=== PATIENT | male | born 1980 | race Caucasian/White ===

== ENCOUNTER 2017-07-11 15:07 | Inpatient (IN) | payer OTHER ==
[~2017-07-11] VITALS: Ht 185.4 cm; Wt 113.3 kg
[2017-07-11] MEDS ORDERED: IPRATROPIUM BROMIDE 0.5 MG/2.5 ML NEB SOLUTION NEB ONE ×2 (15:12→15:30)
[2017-07-11] MEDS ORDERED: ALBUTEROL SULFATE 5 MG/ML 20 ML NEB SOLN [BULK] NEB ONE ×2 (15:12→15:30)
[2017-07-11] MEDS ORDERED: FLUMAZENIL 0.1 MG/ML 5 ML VIAL IVP ONE (15:15)
[2017-07-11] MEDS ORDERED: SODIUM CHLORIDE 0.9% 1,000 ML IV ONE ×2 (15:15→16:30)
[2017-07-11] MEDS ORDERED: NALOXONE HCL 1 MG/ML 2 ML SYG IVP ONE (15:15)
[2017-07-11] MEDS ORDERED: AMLO-511 PO (15:29)
[2017-07-11] MEDS ORDERED: DULO30CA2 PO (15:29)
[2017-07-11] MEDS ORDERED: GABA-531 PO (15:29)
[2017-07-11] MEDS ORDERED: LOSA25TA21 PO (15:29)
[2017-07-11] MEDS ORDERED: ACAM333T7 PO (15:29)
[2017-07-11] MEDS ORDERED: TRAZ-147 PO (15:29)
[2017-07-11] MEDS ORDERED: SILD25 PO (15:29)
[2017-07-11] MEDS ORDERED: LIB25 PO (15:29)
[2017-07-11 15:50] LABS: BASOPHILS % (AUTO) 0.8 % (0.0-2.0); EOSINOPHILS % (AUTO) 3.5 % (1.0-6.0); HEMATOCRIT 47.6 % (41-53); HEMOGLOBIN 16.2 g/dL (13.5-17.5); LYMPHOCYTES # (AUTO) 3.7 K/uL (1.0-4.8); LYMPHOCYTES % (AUTO) 22.7 % (22.0-44.0); MEAN CORPUSCULAR HEMOGLOBIN 30.3 pg (26.0-34.0); MEAN CORPUSCULAR HGB CONC 33.9 G/dL (31.0-37.0); MEAN CORPUSCULAR VOLUME 89 fL (80-100); MONOCYTES % (AUTO) 11.9 % (2.0-9.0); NEUTROPHILS # (AUTO) 10.1 K/uL (1.8-7.7); NEUTROPHILS % (AUTO) 61.1 % (40.0-70.0); PLATELET COUNT (AUTO) 279 K/uL (150-450); RED BLOOD CELL COUNT(AUTO) 5.33 MIL/uL (4.50-5.90); RED CELL DISTRIBUTION WIDTH 13.6 % (11.5-14.5)
[2017-07-11 16:06] LABS: ANION GAP 10 mmol/L (8-16); CALCIUM, TOTAL 8.5 mg/dL (8.8-10.5); CARBON DIOXIDE 26 mmol/L (22-29); CHLORIDE 99 mmol/L (98-107); CREATININE 0.55 mg/dL (0.60-1.30); GLOMERULAR FILTR. RATE CALC > 60 mL/min (>60); GLUCOSE,RANDOM 124 mg/dL (70-110); POTASSIUM 4.2 mmol/L (3.5-5.1); SODIUM SERUM 135 mmol/L (136-145); UREA NITROGEN, BLOOD 8 mg/dL (7-18)
[2017-07-11 16:11] LABS: ALANINE AMINOTRANSFERASE 64 U/L (12-78); ALBUMIN 3.7 g/dL (3.4-5.0); ALKALINE PHOSPHATASE 97 U/L (46-116); ASPARTATE AMINOTRANSFERASE 29 U/L (15-37); BILIRUBIN,TOTAL 0.1 mg/dL (0.1-1.0); TOTAL PROTEIN, SERUM 7.9 g/dL (6.4-8.2)
[2017-07-11 16:15] LABS: ACETAMINOPHEN < 2 mcg/mL (10-30)
[2017-07-11 16:35] LABS: SALICYLATE 1.9 mg/dL (2.8-20.0)
[2017-07-11] MEDS ORDERED: MAGNESIUM SULFATE 2 GM, MVI, ADULT NO.1 WITH VIT K 10 ML, THIAMINE HCL 100 MG, FOLIC AC... IV ONE ×5 (16:45)
[2017-07-11] MEDS ORDERED: ONDANSETRON HCL 4 MG/2 ML VIAL IVP PRN ×2 (16:45)
[2017-07-11] MEDS ORDERED: ACETAMINOPHEN 325 MG TABLET PO PRN (16:45)
[2017-07-11] MEDS ORDERED: MAGNESIUM HYDROXIDE SUSPENSION 30 ML UDCUP PO PRN (16:45)
[2017-07-11] MEDS ORDERED: BISACODYL 10 MG RECTAL RECTAL SUPPOSITORY PR PRN (16:45)
[2017-07-11] MEDS ORDERED: 0.9% SODIUM CHLORIDE 10 ML SYRINGE IVP PRN (16:45)
[2017-07-11] MEDS ORDERED: ALBUTEROL SULFATE HFA 90 MCG/PUFF 8 GM INHALER IH PRN (17:00)
[2017-07-11 18:00] LABS: AMPHET/METH SCREEN,URINE NEGATIVE (NEGATIVE); BARBITURATE SCREEN, URINE NEGATIVE (NEGATIVE); BENZODIAZEPINES SCREEN,URINE POSITIVE (NEGATIVE); CANNABINOID SCREEN,URINE POSITIVE (NEGATIVE); COCAINE SCREEN,URINE NEGATIVE (NEGATIVE); METHADONE SCREEN, URINE NEGATIVE (NEGATIVE); OPIATE SCREEN,URINE NEGATIVE (NEGATIVE)
[2017-07-11 18:18] LABS: PHENCYCLIDINE SCREEN,URINE NEGATIVE (NEGATIVE)
[2017-07-11 20:00] VITALS: BP 112/51
[2017-07-11] MEDS ORDERED: ACETAMINOPHEN 650 MG RECTAL SUPPOSITORY PR PRN (20:15)
[2017-07-11 20:29] LABS: ABG A-A DIFF O2 601.6 mmHg (10-20.0); ABG BASE EXCESS -3.7 mmol/L (-2.0-3.0); ABG CARBOXYHEMOGLOBIN 1.4 % (0.0-1.5); ABG HCO3 20.9 mmol/L (22.0-26.0); ABG METHEMOGLOBIN 0.3 % (0.0-1.5); ABG OXYGEN CONTENT 17.4 mL/dL (15.0-23.0); ABG OXYGEN SATURATION 85.9 % (95.0-98.0); ABG OXYHEMOGLOBIN 84.4 % (94.0-100.0); ABG PCO2 51 mmHg (35-45); ABG TOTAL HEMOGLOBIN 14.7 G/dL (12.0-18.0); PO2, ARTERIAL BG 57.1 mmHg (92.0-100.0); SOURCE, BLOOD GAS ARTERIAL
[2017-07-11] MEDS: ACETAMINOPHEN 325 MG TABLET PO PRN (20:33)
[2017-07-11 20:34] LABS: ABG PH 7.276 (7.350-7.450); O2 DEVICE,BLOOD GAS BIPAP (ROOM AIR); SITE, BLOOD GAS RT RADIAL
[2017-07-11 20:35] LABS: SPONTANEOUS VT, BG 850 ml
[2017-07-11] MEDS: DOCUSATE SODIUM 100 MG CAPSULE PO SCH (20:53)
[2017-07-11 21:20] VITALS: BP 112/48
[2017-07-11] MEDS: MORPHINE SULFATE 4 MG/ML SYRINGE IVP PRN (21:22)
[2017-07-11 21:35] VITALS: BP 130/73
[2017-07-11 21:49] LABS: ABG A-A DIFF O2 584.2 mmHg (10-20.0); ABG BASE EXCESS -3.6 mmol/L (-2.0-3.0); ABG CARBOXYHEMOGLOBIN 0.9 % (0.0-1.5); ABG HCO3 21.4 mmol/L (22.0-26.0); ABG METHEMOGLOBIN 0.3 % (0.0-1.5); ABG OXYGEN CONTENT 19.2 mL/dL (15.0-23.0); ABG OXYHEMOGLOBIN 91.9 % (94.0-100.0); ABG PCO2 48 mmHg (35-45); ABG PH 7.298 (7.350-7.450); ABG TOTAL HEMOGLOBIN 14.9 G/dL (12.0-18.0); PO2, ARTERIAL BG 75.3 mmHg (92.0-100.0); SOURCE, BLOOD GAS ARTERIAL; TEMPERATURE, FAHRENHEIT, BG 102.2 FAHREN (96.0-98.6)
[2017-07-11 21:50] LABS: O2 DEVICE,BLOOD GAS BIPAP (ROOM AIR); SITE, BLOOD GAS RT RADIAL; SPONTANEOUS VT, BG 865 ml
[2017-07-11] MEDS ORDERED: PIPERACILLIN/TAZO 3.375 GM/D5W 50 ML IV ONE (22:30)
[2017-07-11] MEDS ORDERED: SODIUM CHLORIDE 0.9% 250 ML IV ONE (23:48)
[2017-07-12] VITALS (9 sets, daily range): BP systolic 122–157; BP diastolic 58–94
[2017-07-12] MEDS: ALBUTEROL SULFATE 2.5 MG/0.5 ML NEB SOLUTION NEB SCH ×4 (01:35→19:34)
[2017-07-12] MEDS: IPRATROPIUM BROMIDE 0.5 MG/2.5 ML NEB SOLUTION NEB SCH ×4 (01:36→19:34)
[2017-07-12] MEDS: MORPHINE SULFATE 4 MG/ML SYRINGE IVP PRN ×5 (02:16→23:35)
[2017-07-12] MEDS: ACETAMINOPHEN 325 MG TABLET PO PRN (02:36)
[2017-07-12] MEDS: PIPERACILLIN/TAZO 3.375 GM/D5W 50 ML IV SCH ×2 (03:26→11:33)
[2017-07-12 06:17] LABS: ANION GAP 7 mmol/L (8-16); CALCIUM, TOTAL 8.4 mg/dL (8.8-10.5); CARBON DIOXIDE 29 mmol/L (22-29); CHLORIDE 100 mmol/L (98-107); CREATININE 0.67 mg/dL (0.60-1.30); GLOMERULAR FILTR. RATE CALC > 60 mL/min (>60); GLUCOSE,RANDOM 142 mg/dL (70-110); POTASSIUM 4.2 mmol/L (3.5-5.1); SODIUM SERUM 136 mmol/L (136-145); UREA NITROGEN, BLOOD 10 mg/dL (7-18)
[2017-07-12 06:30] LABS: BASOPHILS % (AUTO) 0.2 % (0.0-2.0); EOSINOPHILS % (AUTO) 0 % (1.0-6.0); HEMATOCRIT 41.4 % (41-53); HEMOGLOBIN 14.2 g/dL (13.5-17.5); LYMPHOCYTES # (AUTO) 0.8 K/uL (1.0-4.8); MEAN CORPUSCULAR HEMOGLOBIN 30.2 pg (26.0-34.0); MEAN CORPUSCULAR HGB CONC 34.3 G/dL (31.0-37.0); MEAN CORPUSCULAR VOLUME 88 fL (80-100); MONOCYTES # (AUTO) 1.4 K/uL (0.1-1.0); NEUTROPHILS # (AUTO) 18.3 K/uL (1.8-7.7); PLATELET COUNT (AUTO) 284 K/uL (150-450); RED CELL DISTRIBUTION WIDTH 13.4 % (11.5-14.5)
[2017-07-12 06:46] LABS: NEUTROPHILS % (AUTO) 88.8 % (40.0-70.0)
[2017-07-12] MEDS: DOCUSATE SODIUM 100 MG CAPSULE PO SCH ×2 (08:18→20:16)
[2017-07-12] MEDS: PANTOPRAZOLE SODIUM 40 MG DR TABLET PO SCH (08:18)
[2017-07-12] MEDS ORDERED: LORazepam 2 MG/ML VIAL IM PRN (08:45)
[2017-07-12] MEDS ORDERED: DULoxetine HCL 30 MG CAPSULE PO SCH (09:00)
[2017-07-12 09:30] LABS: ABG A-A DIFF O2 372.1 mmHg (10-20.0); ABG BASE EXCESS 3.5 mmol/L (-2.0-3.0); ABG CARBOXYHEMOGLOBIN 1.6 % (0.0-1.5); ABG HCO3 26.7 mmol/L (22.0-26.0); ABG METHEMOGLOBIN 0.5 % (0.0-1.5); ABG OXYGEN CONTENT 18.3 mL/dL (15.0-23.0); ABG PCO2 51 mmHg (35-45); ABG PH 7.368 (7.350-7.450); PO2, ARTERIAL BG 71.2 mmHg (92.0-100.0); SOURCE, BLOOD GAS ARTERIAL; TEMPERATURE, FAHRENHEIT, BG 99.2 FAHREN (96.0-98.6)
[2017-07-12 09:32] LABS: O2 DEVICE,BLOOD GAS BIPAP (ROOM AIR); SITE, BLOOD GAS RT RADIAL
[2017-07-12] MEDS: NICOTINE 21 MG/24 HOUR PATCH TD SCH (09:37)
[2017-07-12] MEDS: LORazepam 2 MG/ML VIAL IVP PRN ×2 (11:33→20:17)
[2017-07-12] MEDS: HYDROCODONE/ACETAMINOPHEN 5-325 MG TABLET PO PRN ×3 (11:35→20:16)
[2017-07-12] MEDS ORDERED: *CLINICAL-LEVOFLOXACIN IVPB DOSING CLINICAL ONE (13:15)
[2017-07-12] MEDS: LEVOFLOXACIN 750 MG/D5% WATER 150 ML IV SCH (15:19)
[2017-07-12] MEDS: CLINDAMYCIN HCL 300 MG CAPSULE PO SCH ×2 (15:49→21:12)
[2017-07-12] MEDS: GABAPENTIN 300 MG CAPSULE PO SCH (20:16)
[2017-07-12] MEDS: ZOLPIDEM TARTRATE 5 MG TABLET PO PRN (21:12)
[2017-07-13 00:19] VITALS: BP 126/66
[2017-07-13] MEDS: ALBUTEROL SULFATE 2.5 MG/0.5 ML NEB SOLUTION NEB SCH ×4 (02:15→19:44)
[2017-07-13] MEDS: IPRATROPIUM BROMIDE 0.5 MG/2.5 ML NEB SOLUTION NEB SCH ×4 (02:15→19:44)
[2017-07-13] MEDS: HYDROCODONE/ACETAMINOPHEN 5-325 MG TABLET PO PRN ×5 (02:34→21:18)
[2017-07-13 05:25] VITALS: BP 145/78
[2017-07-13] MEDS: MORPHINE SULFATE 4 MG/ML SYRINGE IVP PRN ×4 (05:35→18:54)
[2017-07-13] MEDS: LORazepam 2 MG/ML VIAL IVP PRN ×3 (06:18→18:53)
[2017-07-13 06:44] LABS: BASOPHILS % (AUTO) 0.3 % (0.0-2.0); EOSINOPHILS % (AUTO) 0.6 % (1.0-6.0); HEMATOCRIT 35.7 % (41-53); HEMOGLOBIN 12.3 g/dL (13.5-17.5); LYMPHOCYTES # (AUTO) 1.9 K/uL (1.0-4.8); LYMPHOCYTES % (AUTO) 17.5 % (22.0-44.0); MEAN CORPUSCULAR HEMOGLOBIN 30.5 pg (26.0-34.0); MEAN CORPUSCULAR HGB CONC 34.6 G/dL (31.0-37.0); MEAN CORPUSCULAR VOLUME 88 fL (80-100); MONOCYTES # (AUTO) 0.8 K/uL (0.1-1.0); MONOCYTES % (AUTO) 7.5 % (2.0-9.0); NEUTROPHILS # (AUTO) 8.1 K/uL (1.8-7.7); NEUTROPHILS % (AUTO) 74.1 % (40.0-70.0); PLATELET COUNT (AUTO) 235 K/uL (150-450); RED BLOOD CELL COUNT(AUTO) 4.05 MIL/uL (4.50-5.90); RED CELL DISTRIBUTION WIDTH 13.4 % (11.5-14.5)
[2017-07-13 07:38] LABS: ANION GAP 7 mmol/L (8-16); CALCIUM, TOTAL 8.1 mg/dL (8.8-10.5); CARBON DIOXIDE 29 mmol/L (22-29); CHLORIDE 102 mmol/L (98-107); CREATININE 0.56 mg/dL (0.60-1.30); GLOMERULAR FILTR. RATE CALC > 60 mL/min (>60); GLUCOSE,RANDOM 83 mg/dL (70-110); POTASSIUM 3.6 mmol/L (3.5-5.1); SODIUM SERUM 138 mmol/L (136-145); UREA NITROGEN, BLOOD 8 mg/dL (7-18)
[2017-07-13 07:39] VITALS: BP 136/86
[2017-07-13] MEDS: DULoxetine HCL 60 MG CAPSULE PO SCH (08:46)
[2017-07-13] MEDS: GABAPENTIN 300 MG CAPSULE PO SCH ×3 (08:46→20:01)
[2017-07-13] MEDS: PANTOPRAZOLE SODIUM 40 MG DR TABLET PO SCH (08:46)
[2017-07-13] MEDS: BuPROPion HCL XL 150 MG ER TABLET PO SCH (08:46)
[2017-07-13] MEDS: NICOTINE 21 MG/24 HOUR PATCH TD SCH (08:47)
[2017-07-13] MEDS: CLINDAMYCIN HCL 300 MG CAPSULE PO SCH ×3 (08:47→20:02)
[2017-07-13] MEDS: DOCUSATE SODIUM 100 MG CAPSULE PO SCH ×2 (08:47→20:04)
[2017-07-13 11:45] VITALS: BP 159/95
[2017-07-13] MEDS ORDERED: SODIUM CHLORIDE 0.9% 250 ML IV ONE (15:34)
[2017-07-13 15:54] VITALS: BP 144/84
[2017-07-13] MEDS: LEVOFLOXACIN 750 MG/D5% WATER 150 ML IV SCH (16:51)
[2017-07-13 19:00] VITALS: BP 133/78
[2017-07-13] MEDS: ZOLPIDEM TARTRATE 5 MG TABLET PO PRN (20:33)
[2017-07-14] VITALS (7 sets, daily range): BP systolic 135–155; BP diastolic 82–107
[2017-07-14] MEDS: ALBUTEROL SULFATE 2.5 MG/0.5 ML NEB SOLUTION NEB SCH ×4 (01:32→20:36)
[2017-07-14] MEDS: IPRATROPIUM BROMIDE 0.5 MG/2.5 ML NEB SOLUTION NEB SCH ×4 (01:32→20:36)
[2017-07-14] MEDS: MORPHINE SULFATE 4 MG/ML SYRINGE IVP PRN ×3 (05:47→14:21)
[2017-07-14] MEDS: LORazepam 2 MG/ML VIAL IVP PRN ×3 (05:53→18:22)
[2017-07-14 06:39] LABS: BASOPHILS % (AUTO) 0.5 % (0.0-2.0); EOSINOPHILS % (AUTO) 2.2 % (1.0-6.0); HEMATOCRIT 37.8 % (41-53); LYMPHOCYTES # (AUTO) 1.4 K/uL (1.0-4.8); LYMPHOCYTES % (AUTO) 21.6 % (22.0-44.0); MEAN CORPUSCULAR HEMOGLOBIN 30.3 pg (26.0-34.0); MEAN CORPUSCULAR HGB CONC 34.5 G/dL (31.0-37.0); MEAN CORPUSCULAR VOLUME 88 fL (80-100); MONOCYTES # (AUTO) 0.5 K/uL (0.1-1.0); MONOCYTES % (AUTO) 8.5 % (2.0-9.0); NEUTROPHILS # (AUTO) 4.3 K/uL (1.8-7.7); NEUTROPHILS % (AUTO) 67.2 % (40.0-70.0); PLATELET COUNT (AUTO) 271 K/uL (150-450); RED BLOOD CELL COUNT(AUTO) 4.31 MIL/uL (4.50-5.90); RED CELL DISTRIBUTION WIDTH 13.2 % (11.5-14.5)
[2017-07-14] MEDS: HYDROCODONE/ACETAMINOPHEN 5-325 MG TABLET PO PRN ×4 (06:40→20:05)
[2017-07-14 07:19] LABS: ANION GAP 6 mmol/L (8-16); CALCIUM, TOTAL 8.5 mg/dL (8.8-10.5); CARBON DIOXIDE 29 mmol/L (22-29); CHLORIDE 104 mmol/L (98-107); CREATININE 0.62 mg/dL (0.60-1.30); GLOMERULAR FILTR. RATE CALC > 60 mL/min (>60); GLUCOSE,RANDOM 75 mg/dL (70-110); POTASSIUM 4.2 mmol/L (3.5-5.1); SODIUM SERUM 139 mmol/L (136-145); UREA NITROGEN, BLOOD 9 mg/dL (7-18)
[2017-07-14] MEDS: GABAPENTIN 300 MG CAPSULE PO SCH ×3 (08:04→20:05)
[2017-07-14] MEDS: CLINDAMYCIN HCL 300 MG CAPSULE PO SCH ×3 (08:05→20:05)
[2017-07-14] MEDS: DOCUSATE SODIUM 100 MG CAPSULE PO SCH ×2 (08:05→20:05)
[2017-07-14] MEDS: BuPROPion HCL XL 150 MG ER TABLET PO SCH (08:05)
[2017-07-14] MEDS: DULoxetine HCL 60 MG CAPSULE PO SCH (08:05)
[2017-07-14] MEDS: NICOTINE 21 MG/24 HOUR PATCH TD SCH (08:05)
[2017-07-14] MEDS: PANTOPRAZOLE SODIUM 40 MG DR TABLET PO SCH (08:11)
[2017-07-14] MEDS: LEVOFLOXACIN 750 MG/D5% WATER 150 ML IV SCH (16:03)
[2017-07-14] MEDS: ZOLPIDEM TARTRATE 5 MG TABLET PO PRN (20:08)
[2017-07-15] MEDS: ALBUTEROL SULFATE 2.5 MG/0.5 ML NEB SOLUTION NEB SCH ×4 (02:38→21:01)
[2017-07-15] MEDS: IPRATROPIUM BROMIDE 0.5 MG/2.5 ML NEB SOLUTION NEB SCH ×4 (02:38→21:01)
[2017-07-15 04:09] VITALS: BP 144/89
[2017-07-15] MEDS: HYDROCODONE/ACETAMINOPHEN 5-325 MG TABLET PO PRN ×5 (04:11→20:56)
[2017-07-15] MEDS: LORazepam 2 MG/ML VIAL IVP PRN ×3 (04:11→15:54)
[2017-07-15 07:57] VITALS: BP 158/94
[2017-07-15] MEDS: GABAPENTIN 300 MG CAPSULE PO SCH ×3 (08:07→20:57)
[2017-07-15] MEDS: PANTOPRAZOLE SODIUM 40 MG DR TABLET PO SCH (08:07)
[2017-07-15] MEDS: DULoxetine HCL 60 MG CAPSULE PO SCH (08:07)
[2017-07-15] MEDS: BuPROPion HCL XL 150 MG ER TABLET PO SCH (08:08)
[2017-07-15] MEDS: CLINDAMYCIN HCL 300 MG CAPSULE PO SCH ×3 (08:08→20:56)
[2017-07-15] MEDS: NICOTINE 21 MG/24 HOUR PATCH TD SCH (08:08)
[2017-07-15] MEDS: DOCUSATE SODIUM 100 MG CAPSULE PO SCH ×2 (08:09→20:57)
[2017-07-15 11:44] VITALS: BP 138/89
[2017-07-15 15:52] VITALS: BP 132/87
[2017-07-15] MEDS: LEVOFLOXACIN 750 MG/D5% WATER 150 ML IV SCH (15:54)
[2017-07-15] MEDS: LEVOFLOXACIN 250 MG TABLET PO SCH (18:18)
[2017-07-15 20:53] VITALS: BP 149/86
[2017-07-15] MEDS: ZOLPIDEM TARTRATE 5 MG TABLET PO PRN (21:11)
[2017-07-16 00:49] VITALS: BP 151/97
[2017-07-16] MEDS: IPRATROPIUM BROMIDE 0.5 MG/2.5 ML NEB SOLUTION NEB SCH ×3 (03:27→14:00)
[2017-07-16] MEDS: ALBUTEROL SULFATE 2.5 MG/0.5 ML NEB SOLUTION NEB SCH ×3 (03:27→14:00)
[2017-07-16] MEDS: HYDROCODONE/ACETAMINOPHEN 5-325 MG TABLET PO PRN ×3 (03:35→12:07)
[2017-07-16] MEDS: LORazepam 1 MG TABLET PO PRN ×2 (03:35→09:53)
[2017-07-16 04:30] VITALS: BP 152/96
[2017-07-16] MEDS: CLINDAMYCIN HCL 300 MG CAPSULE PO SCH (07:51)
[2017-07-16] MEDS: DOCUSATE SODIUM 100 MG CAPSULE PO SCH (07:52)
[2017-07-16] MEDS: PANTOPRAZOLE SODIUM 40 MG DR TABLET PO SCH (07:52)
[2017-07-16] MEDS: LEVOFLOXACIN 250 MG TABLET PO SCH (07:52)
[2017-07-16] MEDS: GABAPENTIN 300 MG CAPSULE PO SCH ×2 (07:52→13:02)
[2017-07-16] MEDS: DULoxetine HCL 60 MG CAPSULE PO SCH (07:52)
[2017-07-16] MEDS: NICOTINE 21 MG/24 HOUR PATCH TD SCH (07:53)
[2017-07-16] MEDS ORDERED: BuPROPion HCL XL 150 MG ER TABLET PO SCH (09:00)
[2017-07-16] MEDS ORDERED: AmLODIPine BESYLATE 5 MG TABLET PO SCH (10:45)
[2017-07-16 12:10] VITALS: BP 161/101
[2017-07-16] MEDS: ACETAMINOPHEN 325 MG TABLET PO PRN (13:10)
== END 2017-07-16 16:50 | disposition left against medical advice (07) | DRG 917 ==
LOC: EMS 15:09 → ICU 16:51 → 6N 07-12 18:05
PROVIDERS: ADMIT Internal Medicine; ATTEND Internal Medicine
PROC: 5A09357 Assistance with Respiratory Ventilation, Less than 24 Consecutive Hours, Continuous Positive Airway Pressure (ICD-10-PCS; principal; 2017-07-11)
PROC: 5A09357 Assistance with Respiratory Ventilation, Less than 24 Consecutive Hours, Continuous Positive Airway Pressure (ICD-10-PCS; 2017-07-12)
PROC: 5A09357 Assistance with Respiratory Ventilation, Less than 24 Consecutive Hours, Continuous Positive Airway Pressure (ICD-10-PCS; 2017-07-13)
PROC: 5A09357 Assistance with Respiratory Ventilation, Less than 24 Consecutive Hours, Continuous Positive Airway Pressure (ICD-10-PCS; 2017-07-14)
PROC: 5A09357 Assistance with Respiratory Ventilation, Less than 24 Consecutive Hours, Continuous Positive Airway Pressure (ICD-10-PCS; 2017-07-15)
PROC: 5A09357 Assistance with Respiratory Ventilation, Less than 24 Consecutive Hours, Continuous Positive Airway Pressure (ICD-10-PCS; 2017-07-16)
DX: T42.6X2A Poisoning by other antiepileptic and sedative-hypnotic drugs, intentional self-harm, initial encounter (principal); G92 Toxic encephalopathy; F33.2 Major depressive disorder, recurrent severe without psychotic features; J18.9 Pneumonia, unspecified organism; F17.200 Nicotine dependence, unspecified, uncomplicated; I10 Essential (primary) hypertension; G62.9 Polyneuropathy, unspecified; F10.129 Alcohol abuse with intoxication, unspecified; T46.1X2A Poisoning by calcium-channel blockers, intentional self-harm, initial encounter; T42.4X2A Poisoning by benzodiazepines, intentional self-harm, initial encounter; T46.5X2A Poisoning by other antihypertensive drugs, intentional self-harm, initial encounter; Z59.0 Homelessness; Z81.8 Family history of other mental and behavioral disorders; Z88.8 Allergy status to other drugs, medicaments and biological substances; Z79.899 Other long term (current) drug therapy; Y92.89 Other specified places as the place of occurrence of the external cause
CPT/HCPCS: 71250; 82805; 84145; 87040; 87070; 87081; 87086; 87205; 93005; 94640; 94644; 94660; 99291; G0480; G0481; J1956; J2060; J2270; J2405; J2543; J3411; J3475; J3490; J7030; J7050